=== PATIENT | male | born 1960 | race Caucasian/White ===

== ENCOUNTER → 2016-07-14 | Day surgery (SDC) | payer OTHER ==
[~2016-07-14] MED LIST: ADVIL200 M2 PO; CARAFATE PO; CARAFATE1 G PO; COGENTIN1 M1 PO; COGENTIN1 MG PO; DEPAKOTE ER250 MG; IBUPROFEN; NILSTAT PO; PRILOSEC PO; PRILOSEC20 MG; PSYCH MED; REMERON15 MG PO; VICODIN PO; VOLTAREN75 MG PO; [UNRECOGNIZED DRUG - OTHER] IM
--- NOTE | ~2016-07-14 | OR ---
Unit #: [id number] #: [id number] Patient: JACKIE MUNOZ [id number] [address] [address] [id number] O MR#: [id number] NAME: JACKIE MUNOZ. ROOM: Date of Procedure: 07/14/2016 Admission Date: 07/14/2016 Surgeon: Favian Camarena M.D. : 1960 Attending Physician: Favian Camarena M.D. Referring Physician: Favian Camarena M.D. Primary Care Physician: Leander Velez M.D. OPERATIVE REPORT PREOPERATIVE DIAGNOSIS Dysphagia. POSTOPERATIVE DIAGNOSIS Dysphagia. PROCEDURE PERFORMED Esophagoscopy. ANESTHESIA Monitored anesthesia. FINDINGS The patient was found to have a tight upper esophageal stricture at 20 cm that would not allow the endoscope to pass beyond this point. SPECIMENS None. COMPLICATIONS None apparent. CONDITION The patient tolerated the procedure well. INDICATIONS FOR PROCEDURE The patient is a 55-year-old white male who presents at this time with dysphagia over the last several months of solids greater than liquids. He presents at this time for an upper endoscopy. DESCRIPTION OF PROCEDURE After obtaining informed consent, the patient was brought to the endoscopy suite, and after adequate monitored anesthesia care, had the endoscope placed through the mouth and had the endoscope placed into the upper esophageal opening under direct vision. At 20 cm a little beyond the upper esophageal opening, the patient had a very tight narrowed area. No neoplasm was seen. It just appeared strictured. We were unable to pass the endoscope beyond this point. There was no acute inflammation. We did not feel comfortable performing balloon dilatation in this area and we felt it would best be performed by Thoracic Surgery in this upper esophageal location. As a result, the endoscope was removed. The laryngeal structures were grossly normal as viewed from above. The Unit #: [id number] #: [id number] Patient: JACKIE MUNOZ patient went from the endoscopy suite to recovery area in stable condition. RECOMMENDATIONS Liquids only today. No hot or carbonated or red liquids. Soft foods only starting tomorrow. My office will arrange one with Dr. Juan Miguel Chiang of Thoracic Surgery and we will contact the patient. Dictated by... Paige Latham/marcy TD: 07/15/2016 02:06 JOB #: [id number] CC: Juan Miguel Chiang M.D. [facility] OPERATIVE REPORT Page 1 of 1 X Favian Camarena MD PROCEDURE OPERATIVE NOTE
== END | disposition home or self-care (01) ==
LOC: COPS 08:58
DX: K22.2 Esophageal obstruction (principal); K21.9 Gastro-esophageal reflux disease without esophagitis; F31.9 Bipolar disorder, unspecified; J44.9 Chronic obstructive pulmonary disease, unspecified; R30.0 Dysuria; M54.9 Dorsalgia, unspecified; Z79.899 Other long term (current) drug therapy; F17.200 Nicotine dependence, unspecified, uncomplicated; Z87.898 Personal history of other specified conditions; Z84.89 Family history of other specified conditions; Z98.890 Other specified postprocedural states; Z88.2 Allergy status to sulfonamides
CPT/HCPCS: 43200

== ENCOUNTER → 2016-07-24 | Outpatient (CLI) | payer OTHER ==
--- NOTE | ~2016-07-24 | CR97 ---
[facility] A Service of [facility] RADIOLOGY TEXT RESULTS PATIENT: JACKIE MUNOZ LOCATION: [facility] : 60 UNIT #: [id number] AGE: [address]: Juan Miguel Chiang MD SEX: M ORDER DR: [id number] [facility] [address] [facility]. [place], [place] [address] [id number] O MR#: [id number] Acc #: [id number] NAME: JACKIE MUNOZ. : 1960 SEX: M STUDY DATE/TIME: 07/24/2016 10:31 UNIT: [facility] ROOM: STUDY DESCRIPTION: CR Esophagram Attending Physician: Juan Miguel Chiang M.D. Ordering Physician: Juan Miguel Chiang M.D. Primary Care Physician: Leander Velez M.D. MEDICAL IMAGING REPORT This report is preliminary unless electronic signature is present EXAM Barium esophagram dated 07/24/2016 HISTORY Difficulty swallowing. PROCEDURE Under fluoroscopic control barium and crystals were administered orally. Swallowing was remarkable for passage of the main bolus along the right side of the oropharynx. The patient did have penetration and, in fact, had a small amount of aspirated material below the cords. The esophagus was otherwise normal in course and caliber. Swallowing was recorded and during the swallowing series gianna aspiration was not seen. However clearly small droplets of barium were seen below the cords. The patient was placed in the recumbent position and fill views were obtained. There is no evidence of esophageal stricture or narrowing. The patient does have reflux. CONCLUSION 1. The examination shows evidence of penetration and a tiny amount of aspiration of the barium with swallows. This likely accounts for the patient's cough. It may be related to recent head trauma or stroke. 2. The remainder of the esophagus appears unremarkable. 3. Mild gastroesophageal reflux. Dictated by... Ramírez Buckley M.D. THIS IS AN ELECTRONICALLY VERIFIED REPORT Ramírez Buckley M.D. at 07/28/2016 4:53 PM RIGO/ania TD: 07/24/2016 16:43 [facility] A Service of [facility] RADIOLOGY TEXT RESULTS PATIENT: JACKIE MUNOZ LOCATION: [facility] #: [id number] : 60 UNIT #: [id number] AGE: [address]: Juan Miguel Chiang MD SEX: M ORDER DR: JOB #: [id number] MEDICAL IMAGING REPORT Page 1 of 1 COPY
== END | disposition home or self-care (01) ==
LOC: CRAD 09:57
DX: K22.2 Esophageal obstruction (principal); K21.9 Gastro-esophageal reflux disease without esophagitis
CPT/HCPCS: 74220

== ENCOUNTER → 2016-07-29 | Day surgery (SDC) | payer OTHER ==
--- NOTE | ~2016-07-29 | OR ---
Unit #: [id number] #: [id number] Patient: JACKIE MUNOZ [id number] [address] [address] [id number] O MR#: [id number] NAME: JACKIE MUNOZ ROOM: Date of Procedure: 07/29/2016 Admission Date: 07/29/2016 Surgeon: Juan Migule Chiang M.D. : 1960 Attending Physician: Juan Miguel Chiang M.D. Primary Care Physician: Leander Velez M.D. OPERATIVE REPORT PREOPERATIVE DIAGNOSES Dysphagia; esophageal narrowing. POSTOPERATIVE DIAGNOSES Dysphagia; esophageal narrowing with inflammatory changes of the esophagus along with narrowing in the upper and mid portions of the esophagus; also with a small hiatal hernia. PROCEDURES PERFORMED Esophagogastroduodenoscopy and esophageal dilatation with Savary dilators under fluoroscopic control. ANESTHESIA MAC. ESTIMATED BLOOD LOSS Minimal. COMPLICATIONS None. DESCRIPTION OF PROCEDURE The patient was taken to the endoscopy suite and placed on the fluoroscopy table in a left lateral decubitus position. After appropriate monitoring lines had been placed, IV sedation was given per the Anesthesia Department. The flexible endoscope was then passed orally per a bite block into the posterior pharynx. Under direct vision, the scope was then passed down into the upper esophagus. The patient had some moderate narrowing of the upper esophagus shortly after its takeoff, but with some slight manipulation of the scope. I was able to get the scope to pass through this area of narrowing, which was present in the upper esophagus and also some in the mid esophagus. The scope was passed down through the distal portion of the esophagus and into the stomach. The scope was then passed out through the pylorus and into the duodenum. There was some mild inflammatory changes noted of the mucosa, but no definite ulcerations. The scope was withdrawn back into the stomach. The pylorus and distal stomach appeared normal. Examination of the rest of the stomach was found to be within normal limits. The scope was then withdrawn further with the esophageal hiatus being present at 39 cm. The patient was found to have a small hiatal hernia present with the gastroesophageal junction being present at about 37 cm. A Savary dilator guidewire was then passed per the scope down into the stomach. The endoscope was then removed keeping Unit #: [id number] #: [id number] Patient: JACKIE MUNOZ the guidewire in place. The patient was then dilated under fluoroscopic control with the Savary dilators over the guidewire. I initially started with a #10 Savary dilator and progressed up to a #12 Savary dilator. Because of the inflammation noted of the esophagus, it was elected to stop at the #12 dilator. It should also be stated that on passing the scope, there was some whitish discoloration of the upper esophagus suggestive of possible fungal infection, but this was not seen as much on removal of the scope. It was elected to place the patient on Prilosec at 40 mg p.o. daily and also to place the patient on nystatin oral solution 5 mL swish and swallow t.i.d. for 1 week. I plan to see him back in followup in my office in about 10 to 14 days. Dictated by... Paige Tobin/marcy TD: 07/30/2016 01:03 JOB #: [id number] OPERATIVE REPORT Page 1 of 1 X Juan Miguel Chiang MD X PROCEDURE OPERATIVE NOTE
== END | disposition home or self-care (01) ==
LOC: COPS 11:17
DX: K22.2 Esophageal obstruction (principal); R13.10 Dysphagia, unspecified; K20.9 Esophagitis, unspecified; K44.9 Diaphragmatic hernia without obstruction or gangrene
CPT/HCPCS: 76000; J2250